=== PATIENT | female | born 1950 | race African-American/Black ===

== ENCOUNTER 2018-03-10 15:40 | Emergency (ER) | payer MEDICARE ==
[~2018-03-10] VITALS: Ht 152.4 cm; Wt 102.3 kg
[2018-03-10 15:45] VITALS: Ht 152.4 cm; Wt 102.3 kg
[2018-03-10] MEDS ORDERED: PREDNISONE1 MG PO (15:48)
[2018-03-10] MEDS ORDERED: NAPROXEN375 M1 PO (15:49)
[2018-03-10] MEDS ORDERED: OXYBUTYNIN CHLOR5 MG PO (15:49)
[2018-03-10] MEDS ORDERED: LIPITOR20 MG PO (15:50)
[2018-03-10 16:26] LABS: BASOPHILS 0.4 % (0-2); EOSINOPHILS 0.4 % (0-7); HEMATOCRIT 43.6 % (36.0-48.0); HEMOGLOBIN 14.5 g/dL (12-16); IMMATURE GRANULOCYTES 0.2 % (0-5); LYMPHOCYTES 26.2 % (15-50); MCHC 33.3 g/dL (31.0-37.0); MCV 93.4 fL (80.0-100.0); MEAN PLATELET VOLUME 13.8 fL (7.4-10.4); MONOCYTES 3.5 % (2-11); NEUTROPHILS 69.3 % (40-80); PLATELET COUNT 189 10x3/uL (130-400); RBC 4.67 10x6/uL (4.00-5.40); RDW 13.7 % (11.5-14.5); WBC 4.6 10x3/uL (4.8-10.8)
[2018-03-10 16:49] LABS: APPEARANCE HAZY (CLEAR); BILIRUBIN NEGATIVE (NEGATIVE); COLOR YELLOW (YELLOW); GLUCOSE NEGATIVE (NEGATIVE); KETONE NEGATIVE (NEGATIVE); NITRITE NEGATIVE (NEGATIVE); PROTEIN NEGATIVE (NEGATIVE); UROBILINOGEN NORMAL (NORMAL)
[2018-03-10 16:51] LABS: RED CELLS - URINE 0-5 /hpf (0-5); WHITE CELLS - URINE 0-5 /hpf (0-5)
[2018-03-10 16:52] LABS: BACTERIA MODERATE /hpf (NONE SEEN)
[2018-03-10 16:53] LABS: AMORPHOUS SEDIMENT <1+ /lpf (NONE SEEN)
[2018-03-10 17:22] LABS: ALBUMIN 3.4 g/dL (3.4-5.0); ALKALINE PHOSPHATASE 99 U/L (46-116); ALT (SGPT) 15 U/L (10-68); CALC OSMOLALITY 277 mosm/kg (275-300); CALCIUM 8.4 mg/dL (8.5-10.1); CARBON DIOXIDE 30.7 mmol/L (21.0-32.0); CHLORIDE - SERUM 104 mmol/L (98-107); CREATININE - SERUM 0.8 mg/dL (0.6-1.3); GLUCOSE 112 mg/dL (74-106); POTASSIUM - SERUM 4.3 mmol/L (3.5-5.1); PROTEIN - SERUM 7.7 g/dL (6.4-8.2); SODIUM 139 mmol/L (136-145); UREA NITROGEN 10 mg/dL (7-18); eGFR NON AFRICAN AMERICAN 76 mL/min (90-120)
[2018-03-10 17:26] LABS: AMYLASE - SERUM 52 U/L (25-115); LIPASE 107 U/L (73-393)
[2018-03-10 17:27] LABS: TROPONIN-I < 0.017 ng/mL (0.000-0.060)
[2018-03-10 19:10] VITALS: BP 154/68
== END 2018-03-10 19:10 | disposition home or self-care (01) ==
LOC: D.ER 15:40
PROVIDERS: Family Medicine
DX: R10.31 Right lower quadrant pain (principal); R10.32 Left lower quadrant pain; N85.00 Endometrial hyperplasia, unspecified; I10 Essential (primary) hypertension; K21.9 Gastro-esophageal reflux disease without esophagitis